=== PATIENT | male | born 1945 | race Caucasian/White ===

== ENCOUNTER 2022-06-16 18:46 | Observation (INO) ==
[2022-06-16] MEDS ORDERED: ASPIRIN 325 MG TABLET PO STA (19:18)
[2022-06-16] MEDS ORDERED: SODIUM CHLORIDE 0.9% 1,000 ML IV STA (19:18)
[2022-06-16] MEDS ORDERED: ALUM/MAG/SIMETH/LIDO VISC 1:1 30 ML BOTTLE PO STA (19:18)
[2022-06-16] MEDS ORDERED: ONDANSETRON 4 MG/2 ML VIAL IV STA (19:18)
[2022-06-16] MEDS ORDERED: PANTOPRAZOLE 40 MG VIAL IV STA (19:18)
[2022-06-16 19:56] LABS: Albumin 2.9 G/DL (3.4-5.0); Bilirubin,Total 0.4 MG/DL (0.20-1.00); Calcium 8.6 MG/DL (8.5-10.1); Osmolality,Calculated 265.2 MOS/KG (273-304); Potassium 4.3 MMOL/L (3.5-5.1); Total Protein 6.1 G/DL (6.4-8.2)
[2022-06-16 20:25] LABS: Glucose,Urine (UA) Negative (Negative); Ketones,Urine Negative (Negative); Nitrite,Urine Negative (Negative); Protein,Urine Negative (Negative); Urine Appearance Clear (Clear); Urine Color Yellow (Yellow)
[2022-06-16 20:26] LABS: Bilirubin,Urine Negative (Negative); Blood, Urine Negative (Negative)
[2022-06-16 20:28] LABS: Mucus,Urine Few /LPF (Occasional); RBC,Urine 2 /HPF (0-4)
[2022-06-16 20:54] LABS: Basophils % 0.4 % (0.0-0.8); Eosinophils # 0.1 10*3/uL (0.0-0.87); Hematocrit 38.4 VOL% (42.0-52.0); Hemoglobin 12.4 GM/DL (14.0-18.0); Immature Granulocytes % 0.6 %; Immature Granulocytes Absolute 0.06 #; Lymphocytes # 2.6 10*3/uL (1.4-4.0); Lymphocytes % 24.2 % (21.2-54.2); Mean Corpuscular HGB Conc 32.3 GM/DL (32-36); Mean Corpuscular Volume 97.2 FL (87-102); Mean Platelet Volume 9.6 FL (9.6-12.0); Monocytes # 0.6 10*3/uL (0.11-0.8); Monocytes % 5.6 % (1.7-12.7); Neutrophils % 68.2 % (38.7-73.9); Platelet Count 212 T/CUMM (130-400); Red Blood Count 3.95 MC/CUMM (3.8-5.5); Red Cell Distribution Width 12.8 % (9.3-17.3); White Blood Count 10.5 T/CUMM (4-12)
[2022-06-16 21:04] LABS: PT Patient Result 11.2 SECS (10.1-12.1)
[2022-06-17] MEDS ORDERED: ZALEPLON 5 MG CAPSULE PO PRN (00:47)
[2022-06-17] MEDS ORDERED: hydrALAZINE 20 MG/1 ML VIAL IV PRN (00:47)
[2022-06-17] MEDS ORDERED: GLUCAGON 1 MG VIAL IM PRN (00:47)
[2022-06-17] MEDS ORDERED: ONDANSETRON 4 MG/2 ML VIAL IV PRN (00:47)
[2022-06-17] MEDS ORDERED: guaiFENesin/DM ER 600-30 MG TABLET PO PRN (00:47)
[2022-06-17] MEDS ORDERED: ACETAMINOPHEN 325 MG TABLET PO PRN (00:47)
[2022-06-17] MEDS ORDERED: DEXTROSE 10% 250 ML BAG IV PRN (00:47)
[2022-06-17] MEDS ORDERED: diphenhydrAMINE CAP 25 MG CAPSULE PO PRN (00:47)
[2022-06-17] MEDS: NICOTINE 21 MG/24 HR PATCH TRANSDERM PRN ×2 (02:56→21:35)
[2022-06-17] MEDS ORDERED: ALBUTEROL/IPRATROPIUM 3 ML NEB RESP TX PRN (06:21)
[2022-06-17 06:58] LABS: Basophils # 0.1 10*3/uL (0.0-0.2); Basophils % 0.5 % (0.0-0.8); Eosinophils # 0.2 10*3/uL (0.0-0.87); Eosinophils % 1.3 % (0.00-10.9); Hematocrit 38.6 VOL% (42.0-52.0); Hemoglobin 12.5 GM/DL (14.0-18.0); Immature Granulocytes % 0.7 %; Immature Granulocytes Absolute 0.08 #; Lymphocytes # 2.5 10*3/uL (1.4-4.0); Lymphocytes % 22.2 % (21.2-54.2); Mean Corpuscular HGB Conc 32.4 GM/DL (32-36); Mean Corpuscular Volume 96.5 FL (87-102); Mean Platelet Volume 9.8 FL (9.6-12.0); Monocytes # 0.8 10*3/uL (0.11-0.8); Monocytes % 6.6 % (1.7-12.7); Neutrophils % 68.7 % (38.7-73.9); Platelet Count 213 T/CUMM (130-400); Red Cell Distribution Width 12.9 % (9.3-17.3); White Blood Count 11.3 T/CUMM (4-12)
[2022-06-17 07:25] LABS: Calcium 8.5 MG/DL (8.5-10.1); Osmolality,Calculated 271.7 MOS/KG (273-304); Potassium 4.2 MMOL/L (3.5-5.1)
[2022-06-17] MEDS ORDERED: ONDANSETRON 4 MG TABLET PO PRN (08:28)
[2022-06-17] MEDS ORDERED: INFLUENZA VIRUS VACCINE 0.5 ML SYRINGE IM ONE (09:00)
[2022-06-17] MEDS: PANTOPRAZOLE 40 MG TABLET PO SCH (09:36)
[2022-06-17] MEDS: HEPARIN 5,000 UNIT/1 ML VIAL SUBCUT SCH ×2 (09:37→21:08)
[2022-06-17] MEDS: amLODIPine 10 MG TABLET PO SCH (09:38)
[2022-06-17] MEDS: NF- (Fluticasone-Umeclidin-Vilanter [Trelegy Ellipta] 200-62.5-25 mcg INH SCH (13:02)
[2022-06-17] MEDS: INSULIN REGULAR 100 UNIT/ML SUBCUT SCH ×3 (13:02→21:13)
[2022-06-17] MEDS: ASPIRIN EC 81 MG TABLET PO SCH (13:17)
[2022-06-17] MEDS ORDERED: TUBERCULIN SKIN TEST 0.1 ML SYRINGE INTRADERM ONE (14:15)
[2022-06-18 05:49] LABS: Basophils # 0.1 10*3/uL (0.0-0.2); Basophils % 0.8 % (0.0-0.8); Eosinophils # 0.2 10*3/uL (0.0-0.87); Hematocrit 36.5 VOL% (42.0-52.0); Hemoglobin 11.5 GM/DL (14.0-18.0); Immature Granulocytes % 0.7 %; Immature Granulocytes Absolute 0.06 #; Lymphocytes # 2.6 10*3/uL (1.4-4.0); Mean Corpuscular HGB Conc 31.5 GM/DL (32-36); Mean Corpuscular Volume 97.9 FL (87-102); Mean Platelet Volume 10.5 FL (9.6-12.0); Monocytes # 0.6 10*3/uL (0.11-0.8); Monocytes % 6.6 % (1.7-12.7); Neutrophils % 58.9 % (38.7-73.9); Platelet Count 212 T/CUMM (130-400); Red Blood Count 3.73 MC/CUMM (3.8-5.5); Red Cell Distribution Width 13.1 % (9.3-17.3); White Blood Count 8.5 T/CUMM (4-12)
[2022-06-18 06:05] LABS: Calcium 8.6 MG/DL (8.5-10.1); Osmolality,Calculated 271.1 MOS/KG (273-304); Potassium 3.8 MMOL/L (3.5-5.1)
[2022-06-18 06:09] LABS: Risk Ratio 3.6; VLDL Cholesterol 19.2 MG/DL
[2022-06-18 07:54] VITALS: BP 122/87
[2022-06-18] MEDS: HEPARIN 5,000 UNIT/1 ML VIAL SUBCUT SCH (08:00)
[2022-06-18] MEDS: NF- (Fluticasone-Umeclidin-Vilanter [Trelegy Ellipta] 200-62.5-25 mcg INH SCH (08:02)
[2022-06-18] MEDS: INSULIN REGULAR 100 UNIT/ML SUBCUT SCH (08:02)
[2022-06-18] MEDS: PANTOPRAZOLE 40 MG TABLET PO SCH (08:05)
[2022-06-18] MEDS: amLODIPine 10 MG TABLET PO SCH (08:05)
[2022-06-18] MEDS: ASPIRIN EC 81 MG TABLET PO SCH (08:06)
== END 2022-06-18 11:39 ==
LOC: EDBD → EDUNIT# → N.ED 18:46 → N.2W 18:46
PROVIDERS: ADMIT Internal Medicine; ATTEND Internal Medicine